=== PATIENT | female | born 1985 | race Caucasian/White ===

== ENCOUNTER → 2016-06-30 | Outpatient (CLI) | payer OTHER ==
[~2016-06-30] VITALS: Ht 172.7 cm; Wt 86.2 kg
[~2016-06-30] MED LIST: ACET50TA PO; ANUS2.5C2 TOP; DEXI60CA PO; DOCU10CA PO; LIDOCAINE 2% INJ 100 MG/5 ML SDV (FOR ANES.) As Ordered ONE; MOM30SS PO; MOTR200T44 PO; NS 1,000 ML IV SCH; PROPOFOL 200 MG/20 ML VIAL As Ordered ONE
--- NOTE | 2016-06-30 13:44 | ROOR ---
Patient Name: Khadijah Moscoso Procedure Date: 06/30/2016 1:28 PM Date of : 1985 Age: 31 Room: [facility] Gender: Female Note Status: Finalized Procedure: Upper GI endoscopy Indications: Heartburn, Failure to respond to medical treatment, (significant improvement but not completely resolved with daily Dexilant 60 mg) Providers: Checo GONZALEZ MD Referring MD: Sandhya Salgado DO Requesting Provider: Medicines: Monitored Anesthesia Care Complications: No immediate complications. Procedure: Pre-Anesthesia Assessment: - The heart rate, respiratory rate, oxygen saturations, blood pressure, adequacy of pulmonary ventilation, and response to care were monitored throughout the procedure. The Endoscope was introduced through the mouth, and advanced to the second part of duodenum. The upper GI endoscopy was accomplished without difficulty. The patient tolerated the procedure well. Findings: The esophagus was normal. The stomach was normal. The examined duodenum was normal. Impression: - Normal esophagus. - Normal stomach. - Normal examined duodenum. - No specimens collected. Recommendation: - Continue present medications. - Use Dexilant (dexlansoprazole) 60 mg PO in am. - Use Zantac (ranitidine) 300 mg PO at bedtime. - (the script was sent to your pharmacy on file) - Follow an antireflux regimen. Checo Gonzalez MD Checo GONZALEZ MD 06/30/2016 1:44:46 PM This report has been signed electronically. Number of Addenda: 0 Note Initiated On: 06/30/2016 1:28 PM Estimated Blood Loss: Estimated blood loss: none.
[2016-06-30 14:04] VITALS: BP 145/92
== END | disposition home or self-care (01) ==
LOC: M OPP 12:03
PROVIDERS: ATTEND Internal Medicine Gastroenterology
DX: R12 Heartburn (principal); F45.8 Other somatoform disorders; Z88.2 Allergy status to sulfonamides

== ENCOUNTER → 2016-08-28 | Outpatient (CLI) | payer OTHER ==
[~2016-08-28] MED LIST changes: +E-Z-GAS II EFFERVESCENT PACKET (SODIUM BICARB./CITRIC ACID/SIMETHICONE) As Ordered ONE; +E-Z-HD 98% w/w 340GM SUSP BTL As Ordered ONE; +E-Z-PAQUE 96% w/w SUSP 176GM BTL As Ordered ONE; -LIDOCAINE 2% INJ 100 MG/5 ML SDV (FOR ANES.) As Ordered ONE; -NS 1,000 ML IV SCH; -PROPOFOL 200 MG/20 ML VIAL As Ordered ONE
--- NOTE | 2016-08-28 16:33 | REP ---
UPPER GI, AIR CONTRAST: The procedure was performed under the direct supervision of Dr. Richard. The images were reviewed with Dr. Richard. The plating foreman film shows no organomegaly or pathological masses. The intestinal gas pattern shows a dilated stool filled rectum. Otherwise, the bowel gas pattern is unremarkable. Liquid barium and gas-producing granules were given in the erect position as well as liquid barium in the prone oblique position in order to perform a double contrast upper GI examination. The oral and pharyngeal stages of deglutition are unremarkable. Esophageal transport is prompt and efficient and there is no esophagitis, stricture, mucosal ring or hiatal hernia. Gastroesophageal reflux is not demonstrated on this examination. The stomach mcmillan are normally outlined. The rugal folds are smooth and regular. There is no gastritis, neoplasm or ulcer disease. The duodenal mcmillan are normally outlined. The mucosal folds are smooth and regular. There is no duodenitis, pancreatitis, peptic ulcer disease or neoplasm. The visualized portion of the proximal small bowel appears normal in course and caliber. IMPRESSION: The plating foreman film demonstrates a dilated and stool filled rectum. Otherwise unremarkable double contrast upper GI examination. 2 minutes and 30 seconds of fluoroscopy time was utilized for this procedure. Reviewed by YOBANI Garcia 08/28/2016 04:50 PEdited and Signed by Lucius Richard MD 08/31/2016 08:34 A
== END ==
LOC: M RAD 07:22
PROVIDERS: ATTEND Physician Assistant Surgical
DX: K21.9 Gastro-esophageal reflux disease without esophagitis (principal)

== ENCOUNTER → 2017-05-22 | Outpatient (REF) | payer OTHER | LOC: M LAB REF 19:44 | DX: J02.9 Acute pharyngitis, unspecified (principal) ==

== ENCOUNTER → 2017-06-02 | Outpatient (REF) | payer OTHER | LOC: M LAB REF 13:11 | DX: J02.9 Acute pharyngitis, unspecified (principal); R50.9 Fever, unspecified ==

== ENCOUNTER → 2017-07-23 | Outpatient (REF) | payer OTHER ==
[2017-07-23 13:29] LABS: VITAMIN B12 LEVEL 552 PG/ML (247-911)
[2017-07-23 14:20] LABS: IRON (FE) 108 UG/DL (50-170); TOTAL IRON BINDING CAPACITY 415 UG/DL (250-450)
== END ==
LOC: M LAB REF 12:51
DX: L65.9 Nonscarring hair loss, unspecified (principal)

== ENCOUNTER → 2017-08-12 | Outpatient (REF) | payer OTHER | LOC: M LAB REF 19:24 | DX: J02.9 Acute pharyngitis, unspecified (principal) | CPT/HCPCS: 87070 ==

== ENCOUNTER 2020-08-21 09:45 | Emergency (ER) | payer OTHER, SELFPAY ==
[~2020-08-21] VITALS: Ht 175.3 cm; Wt 104.5 kg
[~2020-08-21 09:45] MED LIST changes: -ACET50TA PO; -DEXI60CA PO; +DEXI60CA2 PO; -E-Z-GAS II EFFERVESCENT PACKET (SODIUM BICARB./CITRIC ACID/SIMETHICONE) As Ordered ONE; -E-Z-HD 98% w/w 340GM SUSP BTL As Ordered ONE; -E-Z-PAQUE 96% w/w SUSP 176GM BTL As Ordered ONE; +MAPA500T2 PO
[2020-08-21] MEDS ORDERED: LOSA25TA14 PO (09:52)
[2020-08-21] MEDS: KETOROLAC TROMETHAMINE 10 MG TAB PO ONE (10:32)
--- NOTE | 2020-08-21 11:05 | REP ---
INDICATION: redness/swelling. COMPARISON: None TECHNIQUE: Real-time sonographic evaluation of left breast performed, in the region of redness and swelling at the 6-8 o'clock positions. FINDINGS: There is an oval area of heterogeneous tissue at the site of redness and swelling. There are few small cystic areas within this region. The area measures 5.5 x 2.2 x 5.2 cm. IMPRESSION: BIRADS/ACR category 3, probably benign. Oval heterogeneous hypoechoic tissue at the site of redness and swelling with a few small internal cystic areas. The findings probably represent mastitis, in the appropriate clinical setting. However, close clinical follow-up and ultrasound follow-up is recommended to ensure resolution and exclude underlying neoplasm. RECOMMENDATION: Recommend close clinical follow-up as discussed above. The findings likely represent mastitis in the appropriate clinical setting. If this is the case, recommend follow-up ultrasound following appropriate treatment. Recommend follow-up to resolution to exclude underlying neoplasm. <Electronically signed by Wei Bear > 08/21/20 [id number]
[2020-08-21] MEDS: DICLOXACILLIN 250 MG CAP PO ONE (12:30)
[2020-08-21] MEDS ORDERED: DICL500C PO (12:40)
[2020-08-21] MEDS ORDERED: KETO10TAB PO (12:40)
[2020-08-21 12:52] VITALS: BP 156/93
--- NOTE | 2020-08-23 10:36 | ED PDOC ---
Post-Departure Follow-Up rick marie faxed fomral report of breast us for fu Ace Kurtz MD August 23, 2020 10:36
== END 2020-08-21 12:56 | disposition home or self-care (01) ==
LOC: M ED 09:45
DX: N61.0 Mastitis without abscess (principal); I10 Essential (primary) hypertension; Z79.899 Other long term (current) drug therapy; Z88.2 Allergy status to sulfonamides

== ENCOUNTER → 2020-08-23 | Outpatient (REF) | payer OTHER ==
[~2020-08-23] MED LIST changes: +DICL500C PO; +KETO10TAB PO; +LOSA25TA14 PO
== END ==
LOC: M LAB REF 16:52
PROVIDERS: ATTEND Internal Medicine
DX: N61.0 Mastitis without abscess (principal)

== ENCOUNTER → 2020-08-28 | Outpatient (REF) | payer OTHER | LOC: M LAB REF 16:26 | PROVIDERS: ATTEND Internal Medicine | DX: N61.0 Mastitis without abscess (principal) ==

== ENCOUNTER → 2020-08-30 | Outpatient (CLI) | payer OTHER ==
--- NOTE | 2020-08-30 14:27 | REP ---
INDICATION: LEFT BREAST SWELLING AND PAIN, FOLLOW UP FROM ER. Patient relates being status post 1 week of antibiotic. Palpable lump is more firm and the fine now. Otherwise patient relates feeling better. COMPARISON: Comparison sonography left breast 21 Aug 2020.. TECHNIQUE: Targeted left breast sonography is performed. The area of interest is in the 6 o'clock position. FINDINGS: Targeted left breast sonography through the palpable abnormality in the inferior aspect of the left breast again demonstrates a 5.7 x 2.8 x 5.1 cm complex area with hypoechoic and anechoic components. With transducer pressure, today's images demonstrate some independent internal motion suggesting proteinaceous fluid content. Findings suggestive of multiloculated breast abscess the size of the complex hypoechoic area at is quite similar essentially unchanged to the August 21, 2020 study. IMPRESSION: Findings quite similar to the exam exam findings from August 21, 2020. Independent motion is seen in some components of the hypoechoic lesion today suggests breast abscess. Continued follow-up is advised. <Electronically signed by Jarod Richard > 08/30/20 1986
== END ==
LOC: M RAD 12:47
PROVIDERS: ATTEND Internal Medicine
DX: N63.21 Unspecified lump in the left breast, upper outer quadrant (principal)

== ENCOUNTER 2021-01-12 08:06 | Emergency (ER) | payer OTHER ==
[~2021-01-12] VITALS: Ht 172.7 cm; Wt 101.2 kg
[2021-01-12 09:30] VITALS: O2SAT 98
[2021-01-12 10:55] VITALS: BP 148/92
== END 2021-01-12 11:00 | disposition home or self-care (01) ==
LOC: M ED 08:06
DX: R06.02 Shortness of breath (principal); R05.9 Cough, unspecified; U07.1 COVID-19; I10 Essential (primary) hypertension; Z79.899 Other long term (current) drug therapy; Z88.1 Allergy status to other antibiotic agents; Z88.2 Allergy status to sulfonamides

== ENCOUNTER 2021-01-13 08:54 | Outpatient (CLI) | payer OTHER ==
--- NOTE | 2021-01-12 12:24 | HPEPDOC ---
[facility] Medical History & Physical Date of Admission Jan 12, 2021 Date of Service: Jan 12, 2021 Primary Care Physician: CAITLYN BAEZ DO Attending Physician: JOSHUA KWOK DO History and Physical CHIEF COMPLAINT: COVID-19, requesting monoclonal antibodies HISTORY OF PRESENT ILLNESS: Patient is a 35-year-old female presented to the hospital under the guidance of her primary care provider due to being positive for COVID-19. Patient symptoms started on 01/10/2021 with sinus pressure, sinus congestion, and head pain. Patient had positive Covid test on 01/11/2021. Patient denies any cough. Patient is having some very mild shortness of breath when she exerts herself but is otherwise feeling well. Patient was fully vaccinated with Moderna in June and July 2020. Patient's son has COVID-19 and she has been caring for him. Patient would like monoclonal antibody infusion. Risks and benefits were briefly gone over with her on the emergency department. Patient meets criteria because of hypertension and BMI greater than 25. PAST MEDICAL HISTORY: 1. Hypertension. PAST SURGICAL HISTORY: Patient denies SOCIAL HISTORY: Patient denies smoking, drinking alcohol, or illicit drug use. Patient works in real estate FAMILY HISTORY: Family history of hypertension ALLERGIES: Please see below. REVIEW OF SYSTEMS: General: Patient denies fevers HEENT: Patient denies headaches Cardiovascular: Patient denies chest pain Respiratory: Patient reports mild shortness of breath as above GI: Patient denies abdominal pain, nausea, vomiting, diarrhea : Patient denies increased frequency or pain with urination Extremities: Patient denies swelling or pain in extremities Neurological: Patient denies numbness or tingling in legs Skin: Patient denies any new rashes or lesions. Hematologic: Patient denies any easy bruising. Lymphatic: Patient denies any lumps lumps or bumps in neck, axilla, or groin HOME MEDICATIONS: Please see below. PHYSICAL EXAMINATION: VITAL SIGNS: Temperature 97.2, pulse 70, respiratory rate 16, blood pressure 148/92, pulse oximetry 98% on room air. General: Alert and oriented female patient was sitting on the stretcher when I walked in. Patient not appear to be in any acute distress. HEENT: Normocephalic, atraumatic, moist mucous membranes. Neck: No lymphadenopathy or thyromegaly Cardiac: Regular rate and rhythm, no murmurs, normal S1, normal S2 Pulm: Clear to auscultation bilaterally. No wheezes, rhonchi, rales Abd: Nondistended, nontender to palpation, normal bowel sounds Ext: No edema bilateral lower extremities Neuro: Patient was able to move all 4 extremities on command and reported equal sensation light touch in all 4 extremities. Skin: Skin of the head, neck, upper and lower extremities was examined did not show any evidence of rash or wounds. LABORATORY DATA: See below. IMAGING: No imaging has been performed MICROBIOLOGY: Please see below. ASSESSMENT: 35-year-old female with exposure to Covid who tested positive for COVID-19 on 01/11/2021 who is requesting monoclonal antibodies.. . PLAN: 1. COVID-19. Patient will receive monoclonal antibodies however, due to staffing in room availability, this will not be performed today. Patient i nstructed to call back with the number that was given to her tomorrow in order to get a scheduled appointment for her monoclonal antibodies tomorrow. Patient signed consent form. We went over the risks and benefits on the consent form. Patient is willing to go through with monoclonal antibody infusion. Patient was fully vaccinated with Moderna in June and July 2020 however, patient's son is sick with COVID-19 which gives her the exposure. Patient qualifies due to BMI greater than 25 and history of hypertension. Patient can be vaccinated for influenza as soon as she can after getting monoclonal antibodies. 2. Hypertension. Patient will continue her medications outpatient and can follow-up with her primary care provider once her COVID-19 infection is resolved. Home Medications Scheduled Dicloxacillin Sodium (Dicloxacillin Sodium) 500 Mg Capsule, 1 CAP PO QID Losartan Potassium (Losartan Potassium) 25 Mg Tablet, 1 TAB PO DAILY Scheduled PRN Ketorolac Tromethamine (Ketorolac Tromethamine) 10 Mg Tablet, 10 MG PO Q6H PRN for PAIN Allergies Coded Allergies: Sulfa (Sulfonamide Antibiotics) (Verified Allergy, Unknown, 08/21/20) RASH A-FIB/CHADSVASC A-FIB History Current/History of A-Fib/PAF?: No JOSHUA KWOK DO Jan 12, 2021 12:24
[~2021-01-13] VITALS: Ht 172.7 cm; Wt 99.8 kg
[~2021-01-13 08:54] MED LIST changes: +ACETAMINOPHEN TAB 650MG DOSE (2X325MG) PO PRN; +ALBUTEROL 90 MCG/ACT 8GM HFA INHALER INH PRN; +ALBUTEROL SULFATE 2.5 MG/0.5 ML INH NEB SOLN INH PRN; +CASIRIVIMAB/IMDEVIMAB 1,200 MG in NS 250 ML IV ONE; +EPINEPHrine INJ 1 MG/ML 1ML AMP IM PRN; +NS 1,000 ML IV SCH; +diphenhydrAMINE 50MG/ML VIAL (J1200) IV PRN; +methylPREDNISolone 125MG 2ML VIAL IV PRN
[2021-01-13 09:22] VITALS: BP 139/82
[2021-01-13 09:26] VITALS: BP 139/82
[2021-01-13 09:50] VITALS: BP 148/83
[2021-01-13 10:25] VITALS: BP 143/83
[2021-01-13 10:52] VITALS: BP 149/86
[2021-01-13 11:52] VITALS: BP 152/89
== END 2021-01-13 11:53 | disposition home or self-care (01) ==
LOC: M OPCLI4 08:54 → M MS4PR 08:56 → M OPCLI4 11:53
PROVIDERS: ATTEND Family Medicine
DX: U07.1 COVID-19 (principal); Z88.2 Allergy status to sulfonamides

== ENCOUNTER → 2021-05-12 | Outpatient (CLI) | payer OTHER ==
[~2021-05-12] MED LIST changes: -ACETAMINOPHEN TAB 650MG DOSE (2X325MG) PO PRN; -ALBUTEROL 90 MCG/ACT 8GM HFA INHALER INH PRN; -ALBUTEROL SULFATE 2.5 MG/0.5 ML INH NEB SOLN INH PRN; -CASIRIVIMAB/IMDEVIMAB 1,200 MG in NS 250 ML IV ONE; -EPINEPHrine INJ 1 MG/ML 1ML AMP IM PRN; +LOSA25TA13 PO; -LOSA25TA14 PO; -NS 1,000 ML IV SCH; -diphenhydrAMINE 50MG/ML VIAL (J1200) IV PRN; -methylPREDNISolone 125MG 2ML VIAL IV PRN
== END ==
LOC: M WHC 12:57
PROVIDERS: ATTEND Internal Medicine
DX: D48.62 Neoplasm of uncertain behavior of left breast (principal); R10.31 Right lower quadrant pain

== ENCOUNTER → 2021-06-04 | Outpatient (CLI) | payer OTHER ==
[~2021-06-04] MED LIST changes: +GASTROGRAFIN SOLUTION 30ML (Q9963) As Ordered ONE; +ISOVUE-370 76% 100ML VIAL As Ordered ONE
== END ==
LOC: M RAD 12:06
PROVIDERS: ATTEND Internal Medicine
DX: K76.0 Fatty (change of) liver, not elsewhere classified (principal); K56.699 Other intestinal obstruction unspecified as to partial versus complete obstruction; K76.89 Other specified diseases of liver; R14.0 Abdominal distension (gaseous); R10.84 Generalized abdominal pain
CPT/HCPCS: 74178; 82150; 83690; Q9963; Q9967

== ENCOUNTER → 2021-06-20 | Outpatient (CLI) | payer OTHER ==
[~2021-06-20] MED LIST changes: -GASTROGRAFIN SOLUTION 30ML (Q9963) As Ordered ONE; -ISOVUE-370 76% 100ML VIAL As Ordered ONE
== END ==
LOC: M WHC 08:31
PROVIDERS: ATTEND Internal Medicine
DX: D13.4 Benign neoplasm of liver (principal); K80.20 Calculus of gallbladder without cholecystitis without obstruction

== ENCOUNTER → 2022-02-23 | Outpatient (CLI) | payer OTHER | LOC: M WHC 10:30 | PROVIDERS: ATTEND Internal Medicine | DX: N64.1 Fat necrosis of breast (principal) ==

== ENCOUNTER 2022-04-06 19:15 | Emergency (ER) | payer OTHER ==
[~2022-04-06] VITALS: Ht 175.3 cm; Wt 93.2 kg
[2022-04-06] MEDS ORDERED: PRED20TA (19:43)
[2022-04-07 01:03] LABS: HEMATOCRIT 37.3 % (36.0-47.0); HEMOGLOBIN 11.6 g/dl (12.0-15.5); MEAN CORPUSCULAR HEMOGLOBIN 24.7 pg (27.0-33.0); MEAN CORPUSCULAR HGB CONC 31.1 g/dl (32.0-36.5); MEAN CORPUSCULAR VOLUME 79.5 fl (80.0-96.0); PLATELET COUNT, AUTOMATED 339 10^3/uL (150-450); RED BLOOD COUNT 4.69 10^6/uL (4.00-5.40)
[2022-04-07 01:33] LABS: CK-MB VALUE MASS < 1.0 NG/ML (<3.6)
[2022-04-07 01:34] LABS: BLOOD UREA NITROGEN 16 MG/DL (9-23); CALCIUM LEVEL 8.8 MG/DL (8.5-10.1); CARBON DIOXIDE LEVEL 23 MMOL/L (20-31); CHLORIDE LEVEL 104 MMOL/L (98-107); CREATININE FOR GFR 0.66 MG/DL (0.55-1.30); GLOMERULAR FILTRATION RATE > 60.0 (>60); GLUCOSE, FASTING 111 MG/DL (60-100); SODIUM LEVEL 139 MMOL/L (136-145)
[2022-04-07 01:36] LABS: THYROID STIMULATING HORMONE 2.159 uIU/ML (0.55-4.78)
[2022-04-07 01:38] LABS: CPK CREATINE PHOSPHOKINASE 88 U/L (34-145); MB/CK RELATIVE INDEX 1.13 (< OR =4)
[2022-04-07 02:05] LABS: HCG, SERUM QUALITATIVE NEGATIVE (NEGATIVE)
[2022-04-07] MEDS ORDERED: ISOVUE-370 76% 100ML VIAL As Ordered ONE (02:10)
[2022-04-07] MEDS ORDERED: GUAI1SOL2 PO (02:54)
[2022-04-07 03:12] VITALS: BP 142/82
[2022-04-07] MEDS ORDERED: BENZ200C70 PO (08:53)
== END 2022-04-07 03:13 | disposition home or self-care (01) ==
LOC: M ED 19:15
DX: R07.9 Chest pain, unspecified (principal); I10 Essential (primary) hypertension; F41.9 Anxiety disorder, unspecified; F10.10 Alcohol abuse, uncomplicated; Z86.16 Personal history of COVID-19; Z88.2 Allergy status to sulfonamides; Z79.811 Long term (current) use of aromatase inhibitors; Z79.899 Other long term (current) drug therapy

== ENCOUNTER → 2022-04-21 | Outpatient (CLI) | payer OTHER ==
[~2022-04-21] MED LIST changes: +BENZ200C70 PO; +GUAI1SOL2 PO; +PRED20TA
== END ==
LOC: M WHC 14:16
PROVIDERS: ATTEND Surgery
DX: R92.8 Other abnormal and inconclusive findings on diagnostic imaging of breast (principal)
CPT/HCPCS: 76642; 77066; G0279

== ENCOUNTER → 2022-05-27 | Outpatient (CLI) | payer OTHER | LOC: M WUC 09:02 | PROVIDERS: ATTEND Physician Assistant | DX: M79.621 Pain in right upper arm (principal) ==

== ENCOUNTER → 2022-08-20 | Outpatient (CLI) | payer OTHER | LOC: M WHC 08:19 | PROVIDERS: ATTEND Surgery | DX: N63.24 Unspecified lump in the left breast, lower inner quadrant (principal); N63.12 Unspecified lump in the right breast, upper inner quadrant ==

== ENCOUNTER → 2023-02-24 | Outpatient (CLI) | payer OTHER | LOC: M WHC 12:39 | PROVIDERS: ATTEND Internal Medicine | DX: Z53.9 Procedure and treatment not carried out, unspecified reason (principal) ==

== ENCOUNTER → 2023-04-27 | Outpatient (REF) | payer OTHER ==
[2023-04-27 14:30] LABS: PERCENT SATURATION 14.1 % (13.2-45.0)
[2023-04-27 14:34] LABS: FERRITIN 9.2 NG/ML (7.3-270.7)
== END ==
LOC: M LAB REF 12:36
PROVIDERS: ATTEND Internal Medicine
DX: L65.9 Nonscarring hair loss, unspecified (principal)

== ENCOUNTER → 2024-03-08 | Outpatient (REF) | payer OTHER ==
[2024-03-08 13:09] LABS: PERCENT SATURATION 20.8 % (13.2-45.0)
[2024-03-08 13:12] LABS: FERRITIN 11.5 NG/ML (7.3-270.7)
== END ==
LOC: M LAB REF 12:14
PROVIDERS: ATTEND Internal Medicine
DX: D50.9 Iron deficiency anemia, unspecified (principal); R63.4 Abnormal weight loss

== ENCOUNTER 2024-05-24 21:21 | Emergency (ER) | payer OTHER ==
[~2024-05-24] VITALS: Ht 172.7 cm; Wt 97.1 kg
[2024-05-24 21:28] VITALS: BP 165/80; TEMP 96.5; O2SAT 99
== END 2024-05-24 22:28 | disposition left against medical advice (07) ==
LOC: M ED 21:21
DX: Z53.21 Procedure and treatment not carried out due to patient leaving prior to being seen by health care provider (principal)

== ENCOUNTER → 2024-05-26 | Outpatient (REF) | payer OTHER ==
[2024-05-26 14:04] LABS: PERCENT SATURATION 23.1 % (13.2-45.0); RHEUMATOID FACTOR QUANT 4.9 IU/ML (<14)
[2024-05-26 14:08] LABS: FERRITIN 11.4 NG/ML (7.3-270.7)
[2024-05-30 02:42] LABS: RNP ANTIBODY <1.0 NEG AI (<1.0 NEG); SM ANTIBODY <1.0 NEG AI (<1.0 NEG); SSA SJOGRENS A <1.0 NEG AI (<1.0 NEG); SSB SJOGRENS B <1.0 NEG AI (<1.0 NEG)
== END ==
LOC: M LAB REF 12:57
PROVIDERS: ATTEND Internal Medicine
DX: D50.9 Iron deficiency anemia, unspecified (principal); G47.62 Sleep related leg cramps